=== PATIENT | female | born 1980 | race Caucasian/White ===

== ENCOUNTER 2018-02-14 14:03 | Inpatient (IN) | payer OTHER ==
[~2018-02-14] VITALS: Ht 147.3 cm; Wt 42.4 kg
--- NOTE | ~2018-02-14 | EKG ---
[place], [place] ELECTROCARDIOGRAM REPORT NAME: DELMER GONZALEZ UNIT #: [id number] ROOM: [facility] DOCTOR: SUE POST MD BIRTHDATE: [birth year] DOS: 02/14/2018 TIME: 1420 hours. FINDINGS: 1. Normal sinus rhythm at 87 beats per minute. 2. The tracing is normal. 3. No previous tracing is available for comparison. SUE POST MD CM:EKGRPT:ELECTROCARDIOGRAM REPORT [id number] SUE POST MD
[~2018-02-14 14:03] MED LIST: ATIVAN1 MG PO; NITROFURANTOIN100 M6 PO; ONDANSETRON HYDR4 M1 PO; ROBAXIN750 MG PO; THERA1 TAB PO; VITAMIN B-11 TAB PO
[2018-02-14 14:05] VITALS: BP 105/68
[2018-02-14 14:43] LABS: BASO % 0.3 % (0.0-1.0); EOS # 0.2 10*3/uL (0.0-0.4); EOS % 2.5 % (1.0-4.0); HEMATOCRIT 41.9 % (37.0-47.0); HEMOGLOBIN 13.7 g/dl (12.0-16.0); LYMPH # 2.3 10*3/uL (1.3-4.4); LYMPH % 26.4 % (27.0-41.0); MEAN CELL VOLUME 95.7 fl (81.0-99.0); MEAN CORPUSCULAR HGB 31.3 pg (27.0-31.0); MEAN CORPUSCULAR HGB CONC 32.7 g/dl (33.0-37.0); MEAN PLATELET VOLUME 8.8 fl (9.6-12.3); MONO # 0.5 10*3/uL (0.1-1.0); MONO % 5.9 % (3.0-9.0); NEUT # 5.8 10*3/uL (2.3-7.9); NEUT % 64.7 % (47.0-73.0); PLATELET COUNT AUTOMATED 289 10*3/uL (130-400); RED BLOOD COUNT 4.38 10*6/uL (4.10-5.10); RED CELL DISTRI WIDTH 12.8 % (0-14.5); WHITE BLOOD COUNT 8.9 10*3/uL (4.8-10.8)
[2018-02-14 14:57] VITALS: BP 116/62
[2018-02-14 14:57] LABS: ALBUMIN 4.1 gm/dl (3.1-4.5); ALKALINE PHOSPHATASE 70 U/L (45-117); BUN 9 mg/dl (7-24); CHLORIDE 112 mmol/L (98-107); CREATININE 0.63 mg/dL (0.55-1.02); LIPASE 141 U/L (73-393); POTASSIUM 3.2 mmol/L (3.5-5.1); SGOT/AST 14 IU/L (3-35); SGPT/ALT 21 U/L (12-78); SODIUM 150 mmol/L (136-145); TOTAL PROTEIN 7.1 gm/dL (6.4-8.2)
[2018-02-14 14:58] LABS: URINE AMPHETAMINES < 1000 (1000ng/ml); URINE BARBITURATES < 200 (200ng/ml); URINE BENZODIAZEPINES < 200 (200ng/ml); URINE CANNABINOIDS (THC) < 50 (50ng/ml); URINE COCAINE > 300 (300ng/ml); URINE METHADONE < 300 (300ng/ml); URINE OPIATES < 300 (300ng/ml)
[2018-02-14 14:59] LABS: URINE PHENCYCLIDINE < 25 (25ng/ml)
[2018-02-14 14:59] LABS: ACETAMINOPHEN (TYLENOL) < 2.0 ug/ml (10-30); TROPONIN I < 0.015 ng/ml (<0.045)
[2018-02-14 15:04] LABS: THYROID STIM HORMONE (HS) 0.346 uIU/ml (0.358-4.75)
[2018-02-14 15:05] LABS: BILIRUBIN NEGATIVE (NEGATIVE); BLOOD TRACE-INTACT (NEGATIVE); CLARITY CLEAR (CLEAR); COLOR YELLOW (YELLOW); GLUCOSE NEGATIVE (NEGATIVE); KETONE NEGATIVE (NEGATIVE); LEUKO ESTERASE NEGATIVE (NEGATIVE); NITRITE NEGATIVE (NEGATIVE); PH 5.5 (5.0-9.0); UROBILINOGEN 0.2 E.U./dl (0.2-1.0)
[2018-02-14 15:15] LABS: MUCOUS TRACE
[2018-02-14 15:30] VITALS: BP 107/60
[2018-02-14 20:00] VITALS: BP 107/70
[2018-02-15] VITALS: BP 102/59
[2018-02-15 04:00] VITALS: BP 104/58
[2018-02-15 06:22] LABS: BASO % 0.6 % (0.0-1.0); EOS # 0.2 10*3/uL (0.0-0.4); EOS % 4.1 % (1.0-4.0); LYMPH # 2.5 10*3/uL (1.3-4.4); LYMPH % 46.6 % (27.0-41.0); MEAN CELL VOLUME 97.5 fl (81.0-99.0); MEAN CORPUSCULAR HGB 31.6 pg (27.0-31.0); MEAN CORPUSCULAR HGB CONC 32.4 g/dl (33.0-37.0); MEAN PLATELET VOLUME 9.1 fl (9.6-12.3); MONO # 0.4 10*3/uL (0.1-1.0); MONO % 7.6 % (3.0-9.0); NEUT # 2.2 10*3/uL (2.3-7.9); NEUT % 40.7 % (47.0-73.0); PLATELET COUNT AUTOMATED 214 10*3/uL (130-400); RED BLOOD COUNT 3.67 10*6/uL (4.10-5.10); RED CELL DISTRI WIDTH 12.9 % (0-14.5); WHITE BLOOD COUNT 5.4 10*3/uL (4.8-10.8)
[2018-02-15 06:25] LABS: HEMATOCRIT 35.8 % (37.0-47.0); HEMOGLOBIN 11.6 g/dl (12.0-16.0)
[2018-02-15 06:35] LABS: ALKALINE PHOSPHATASE 56 U/L (45-117); BUN 11 mg/dl (7-24); CHLORIDE 113 mmol/L (98-107); PHOSPHOROUS 3.5 mg/dL (2.5-4.9); POTASSIUM 4.1 mmol/L (3.5-5.1); SGOT/AST 7 IU/L (3-35); SGPT/ALT 16 U/L (12-78); SODIUM 146 mmol/L (136-145); TOTAL PROTEIN 5.2 gm/dL (6.4-8.2)
[2018-02-15 08:00] VITALS: BP 112/63
[2018-02-15 12:00] VITALS: BP 110/52
[2018-02-15 16:00] VITALS: BP 107/68
[2018-02-15 20:00] VITALS: BP 109/61
[2018-02-16] VITALS: BP 103/67
[2018-02-16 08:00] VITALS: BP 125/80
[2018-02-16 12:00] VITALS: BP 98/57
[2018-02-16 16:00] VITALS: BP 106/59
[2018-02-16 20:00] VITALS: BP 113/57
[2018-02-17] VITALS: BP 109/41
[2018-02-17 08:00] VITALS: BP 94/50
[2018-02-17 12:00] VITALS: BP 90/45
== END 2018-02-17 15:11 | disposition home or self-care (01) | DRG 640 ==
LOC: ED 14:03 → 5E 14:36 → EDHOLD 14:36 → ICCU 14:36 → EDHOLD 14:43 → ICCU 14:45 → 5E 02-15 12:26
PROVIDERS: Family Medicine; Nurse Practitioner Family
DX: E87.0 Hyperosmolality and hypernatremia (principal); G93.41 Metabolic encephalopathy; F10.221 Alcohol dependence with intoxication delirium; F10.231 Alcohol dependence with withdrawal delirium; E44.0 Moderate protein-calorie malnutrition; R11.0 Nausea; F14.10 Cocaine abuse, uncomplicated; R19.7 Diarrhea, unspecified; F17.200 Nicotine dependence, unspecified, uncomplicated; E83.51 Hypocalcemia; E87.6 Hypokalemia; D64.9 Anemia, unspecified; E87.8 Other disorders of electrolyte and fluid balance, not elsewhere classified; Z88.8 Allergy status to other drugs, medicaments and biological substances; Z82.49 Family history of ischemic heart disease and other diseases of the circulatory system; Z80.9 Family history of malignant neoplasm, unspecified; Z71.6 Tobacco abuse counseling; Z90.710 Acquired absence of both cervix and uterus; Z81.3 Family history of other psychoactive substance abuse and dependence; Z68.20 Body mass index [BMI] 20.0-20.9, adult; Z79.899 Other long term (current) drug therapy